=== PATIENT | male | born 1980 | race Two or more races ===

== ENCOUNTER 2024-01-25 17:25 | Emergency (ER) | payer MEDICAID, OTHER ==
[~2024-01-25] VITALS: Ht 177.8 cm; Wt 93.0 kg
[2024-01-25] MEDS ORDERED: IBUPROFEN 600 MG TABLET ONE (20:45)
[2024-01-25] MEDS ORDERED: ACETAMINOPHEN ES 500 MG TABLET ONE ×2 (20:45→20:46)
[2024-01-25] MEDS: IBUPROFEN 600 MG TABLET PO ONE (20:51)
[2024-01-25] MEDS: ACETAMINOPHEN ES 500 MG TABLET PO ONE (20:51)
[2024-01-25] MEDS ORDERED: IBUP-1953 PO (21:26)
[2024-01-25 21:38] VITALS: BP 131/79; TEMP 98; O2SAT 100
== END 2024-01-25 21:39 | disposition home or self-care (01) ==
LOC: ER 17:36
DX: S80.12XA Contusion of left lower leg, initial encounter (principal); V09.9XXA Pedestrian injured in unspecified transport accident, initial encounter; Y93.89 Activity, other specified; Y92.488 Other paved roadways as the place of occurrence of the external cause; Y99.8 Other external cause status
CPT/HCPCS: 73502